=== PATIENT | female | born 1945 | race Caucasian/White ===

== ENCOUNTER 2019-03-12 07:45 | Day surgery (SDC) | payer OTHER ==
[~2019-03-12] VITALS: Ht 165.1 cm; Wt 75.4 kg
[~2019-03-12 07:45] MED LIST: SIMV20 PO
== END 2019-03-12 09:55 | disposition home or self-care (01) ==
LOC: ORSCSDS 07:45
PROVIDERS: Internal Medicine Gastroenterology
PROC: 0DBM8ZX Excision of Descending Colon, Via Natural or Artificial Opening Endoscopic, Diagnostic (ICD-10-PCS; principal; 2019-03-12 09:00)
DX: Z12.11 Encounter for screening for malignant neoplasm of colon (principal); Z86.010 Personal history of colon polyps; D12.4 Benign neoplasm of descending colon; K57.30 Diverticulosis of large intestine without perforation or abscess without bleeding; Z79.82 Long term (current) use of aspirin; Z79.899 Other long term (current) drug therapy
CPT/HCPCS: 88305; J0461; J2405; J2704; J7120

== ENCOUNTER 2020-03-03 08:10 | Day surgery (SDC) | payer OTHER ==
[~2020-03-03] VITALS: Ht 165.1 cm; Wt 76.6 kg
[~2020-03-03 08:10] MED LIST changes: +ASPI325 PO; +[UNRECOGNIZED DRUG - OTHER] PO
== END 2020-03-03 10:43 | disposition home or self-care (01) ==
LOC: ORSCSDS 08:10
PROVIDERS: Ophthalmology
PROC: 08RJ3JZ Replacement of Right Lens with Synthetic Substitute, Percutaneous Approach (ICD-10-PCS; principal; 2020-03-03 09:30)
DX: H25.11 Age-related nuclear cataract, right eye (principal); I10 Essential (primary) hypertension; E78.00 Pure hypercholesterolemia, unspecified; Z79.899 Other long term (current) drug therapy; Z79.82 Long term (current) use of aspirin
CPT/HCPCS: J2001; J2250; J3010; J3301; J7040; V2632

== ENCOUNTER 2020-05-19 07:38 | Day surgery (SDC) | payer OTHER ==
[~2020-05-19] VITALS: Ht 165.1 cm; Wt 76.8 kg
== END 2020-05-19 10:17 | disposition home or self-care (01) ==
LOC: ORSCSDS 07:38
PROVIDERS: Ophthalmology
PROC: 08RK3JZ Replacement of Left Lens with Synthetic Substitute, Percutaneous Approach (ICD-10-PCS; principal; 2020-05-19 09:00)
DX: H25.12 Age-related nuclear cataract, left eye (principal); Z79.82 Long term (current) use of aspirin; Z79.899 Other long term (current) drug therapy
CPT/HCPCS: J2250; J3010; J7040; V2632

== ENCOUNTER 2024-10-16 08:48 | Day surgery (SDC) | payer OTHER ==
[~2024-10-16] VITALS: Ht 165.1 cm; Wt 78.9 kg
[~2024-10-16 08:48] MED LIST changes: +Lactated Ringer's 1,000 ML IV ONE; +propofoL 50 ML IV ONE
[2024-10-16] MEDS ORDERED: DOXY100 (09:33)
[2024-10-16] MEDS ORDERED: Lactated Ringer's 1,000 ML IV ONE (09:44)
[2024-10-16 10:49] VITALS: BP 114/64
== END 2024-10-16 10:52 | disposition home or self-care (01) ==
LOC: ORSCSDS 08:48
PROVIDERS: Internal Medicine Gastroenterology
PROC: 0DBK8ZX Excision of Ascending Colon, Via Natural or Artificial Opening Endoscopic, Diagnostic (ICD-10-PCS; principal; 2024-10-16 10:15)
DX: Z12.11 Encounter for screening for malignant neoplasm of colon (principal); Z86.0101 Personal history of adenomatous and serrated colon polyps; D12.2 Benign neoplasm of ascending colon; Z79.899 Other long term (current) drug therapy
CPT/HCPCS: 88305; J2704; J7120